=== PATIENT | male | born 1975 | race Hispanic/Latino ===

== ENCOUNTER 2018-11-22 13:42 | Emergency (ER) | payer OTHER ==
[2018-11-22 13:50] VITALS: RESP 18
--- NOTE | 2018-11-22 15:08 | C.PDOC ---
History Of Present Illness 43 year old male, whose past medical history includes hypertension and diabetes (compliant with medications), presents to the ED for evaluation of left thumb pain which began yesterday. Patient states he was trying to close a window last night, when he accidentally jammed this left thumb against the window sill. Patient has been experiencing left thumb and snuff box pain since. He is up-to-date with vaccinations and denies left elbow pain, lacerations or extremity numbness/weakness at this time. Chief Complaint (Nursing): Finger,Hand,&Wrist History Per: Patient History/Exam Limitations: no limitations Onset/Duration Of Symptoms: Hrs Current Symptoms Are (Timing): Still Present Quality: "Pain" Additional History Per: Patient Past Medical History Reviewed: Historical Data, Nursing Documentation, Vital Signs Vital Signs: Last Vital Signs Temp 98.3 F 11/22/18 13:47 Pulse 94 H 11/22/18 13:47 Resp 18 11/22/18 13:47 BP 128/92 H 11/22/18 13:47 Pulse Ox 95 11/22/18 13:47 - Medical History PMH: Diabetes, HTN Surgical History: No Surg Hx - [facility] Procedures TETANUS TOXOID ADMINIST (08/19/13) Family History: States: Unknown Family Hx - Social History Hx Tobacco Use: Yes Hx Alcohol Use: No Hx Substance Use: No - Immunization History Hx Tetanus Toxoid Vaccination: Yes Hx Influenza Vaccination: No Hx Pneumococcal Vaccination: No Review Of Systems Constitutional: Negative for: Fever, Chills Eyes: Negative for: Pain ENT: Negative for: Ear Pain, Ear Discharge, Mouth Pain, Mouth Swelling Cardiovascular: Negative for: Chest Pain, Palpitations Respiratory: Negative for: Cough, Shortness of Breath Gastrointestinal: Negative for: Nausea, Abdominal Pain Genitourinary: Negative for: Dysuria, Frequency Musculoskeletal: Positive for: Other (left thumb and L snuff box pain, no elbow pain ). Negative for: Neck Pain, Shoulder Pain, Arm Pain, Back Pain, Leg Pain, Foot Pain Neurological: Negative for: Weakness, Numbness Physical Exam - Physical Exam Appears: Non-toxic, No Acute Distress Skin: Normal Color, Warm, Dry Head: Atraumatic, Normacephalic Eye(s): bilateral: Normal Inspection Lips: Normal Appearing Gingiva: Normal Appearing Throat: Normal, No Erythema, No Exudate Neck: Normal, Normal ROM, No Midline Cervical Tenderness, Supple Chest: Symmetrical, No Deformity, No Tenderness Cardiovascular: Rhythm Regular Respiratory: Normal Breath Sounds Gastrointestinal/Abdominal: Normal Exam, Soft, No Tenderness Extremity: Normal ROM, Tenderness (left snuff box only), Capillary Refill (less than 2 seconds ), No Deformity, No Swelling Extremity: Right: Atraumatic Pulses: Left Radial: Normal, Right Radial: Normal Neurological/Psych: Oriented x3, Normal Speech, Normal Cognition, Normal Sensation ED Course And Treatment O2 Sat by Pulse Oximetry: 95 (on RA ) Pulse Ox Interpretation: Normal - Other Rad hand XR X-Ray: Viewed By Me, Read By Radiologist Interpretation: PROCEDURE: Left Hand Radiographs. HISTORY: L snuffbox pain after slamming against window. COMPARISON: None available. FINDINGS: BONES: No acute displaced fracture. JOINTS: No dislocation. SOFT TISSUES: Unremarkable. No evidence of radiopaque foreign body. OTHER FINDINGS: None. IMPRESSION: No acute displaced fracture, dislocation, or significant joint effusion identified. If symptoms persist, or if there is continued clinical concern, x-ray follow-up in 7-10 days should be considered. Medical Decision Making Medical Decision Makin43 year old male p/w L snuffbox tenderness pain w/ full ROM and normal strength on exam to L hand. Likely msk constusion but will seek xr. Progress: Left hand XR ordered and reviewed. XR unremarkable L spica splint placed w/ good n/v status after placement pt instructed to f/u w/ ortho / PMD for possible repeat XRays and given return instructions pt notes he has pain meds: tylenol and mortin at home asked for one dose of motrin prior to leaving. pt agreeable to plan. Disposition - Disposition Referrals: David Leach MD [Staff Provider] - [facility] [Outside] [facility] [Outside] [facility] [Outside] Disposition: HOME/ ROUTINE Disposition Time: 16:26 Condition: GOOD Additional Instructions: YOU MIGHT NEED REPEAT XRAYS, fOLLOW UP in 7-10 DAYS WITH EITHER CLINIC OR PRIMARY CARE DOCTOR OR BONE DOCTOR FOR REPEAT XRAYS BECCA RUFF, thank you for letting us take care of you today. Your provider was Larry Prasad and you were treated for FINGER PAIN. The emergency medical care you received today was directed at your acute symptoms. If you were prescribed any medication, please fill it and take as directed. It may take several days for your symptoms to resolve. Return to the Emergency Department if your sym ptoms worsen, do not improve, or if you have any other problems. Please contact your doctor or call one of the physicians/clinics you have been referred to that are listed on the Patient Visit Information form that is included in your discharge packet. Bring any paperwork you were given at discharge with you along with any medications you are taking to your follow up visit. Our treatment cannot replace ongoing medical care by a primary care provider outside of the emergency department. Thank you for allowing the [facility] team to be part of your care today. If you had an X-Ray or CT scan: A Radiologist will review the ED reading if any change in treatment is needed we will contact you. If you had a blood, urine, or wound culture: It will take several days for the results, if any change in treatment is needed we will contact you. If you had an STI test: It will take 48 hours for the results. Please call after 1 week if you have not heard back. Instructions: Hand Pain (DC) Forms: [employer] (Colombian) - Clinical Impression Clinical Impression: Left hand pain - Scribe Statement The provider has reviewed the documentation as recorded by the Scribe (Magnolia Wan) Provider Attestation: All medical record entries made by the Scribe were at my direction and personally dictated by me. I have reviewed the chart and agree that the record accurately reflects my personal performance of the history, physical exam, medical decision making, and the department course for this patient. I have also personally directed, reviewed, and agree with the discharge instructions and disposition.
--- NOTE | 2018-11-22 16:17 | RAD ---
PROCEDURE: Left Hand Radiographs. HISTORY: L snuffbox pain after slamming against window COMPARISON: None available. FINDINGS: BONES: No acute displaced fracture. JOINTS: No dislocation. SOFT TISSUES: Unremarkable. No evidence of radiopaque foreign body. OTHER FINDINGS: None. IMPRESSION: No acute displaced fracture, dislocation, or significant joint effusion identified. If symptoms persist, or if there is continued clinical concern, x-ray follow-up in 7-10 days should be considered.
[2018-11-22 17:06] VITALS: BP 132/85; PULSE 66; TEMP 97.8
[2018-11-22 22:57] VITALS: O2SAT 95
== END 2018-11-22 16:50 | disposition home or self-care (01) ==
LOC: C.ER 13:42
DX: M79.642 Pain in left hand (principal)

== ENCOUNTER 2019-03-26 15:43 | Emergency (ER) | payer OTHER ==
[2019-03-26 15:57] VITALS: RESP 18
--- NOTE | 2019-03-26 16:19 | C.PDOC ---
History Of Present Illness 43 y/o male with dm and htn twisted left ankl 2 hrs ago in yard, was carrying something and missed seeing drainage ditch. no other injuries. nothing taken for pain at home. Time Seen by Provider: 03/26/19 15:59 Chief Complaint (Nursing): Lower Extremity Problem/Injury History Per: Patient History/Exam Limitations: no limitations Onset/Duration Of Symptoms: Hrs Current Symptoms Are (Timing): Still Present Additional History Per: Patient - Ankle/Foot Description Of Injury: Twisted Past Medical History Reviewed: Historical Data, Nursing Documentation, Vital Signs Vital Signs: Last Vital Signs Temp 98.5 F 03/26/19 15:55 Pulse 104 H 03/26/19 15:55 Resp 18 03/26/19 15:55 BP 116/72 03/26/19 15:55 Pulse Ox 97 03/26/19 15:55 Primary Care Provider: Krissy Angel - Medical History PMH: Diabetes, HTN Surgical History: No Surg Hx - [facility] Procedures TETANUS TOXOID ADMINIST (08/19/13) Family History: States: Unknown Family Hx - Social History Hx Tobacco Use: Yes Hx Alcohol Use: No Hx Substance Use: No - Immunization History Hx Tetanus Toxoid Vaccination: Yes Hx Influenza Vaccination: No Hx Pneumococcal Vaccination: No Review Of Systems Musculoskeletal: Positive for: Other (left ankle pain ) Skin: Negative for: Rash, Lesions, Jaundice, Bruising (head injury, LOC ) Physical Exam - Physical Exam Appears: Non-toxic, No Acute Distress Skin: Normal Color, Warm, Dry Head: Atraumatic, Normacephalic Extremity: Normal ROM (full range of motion of left knee ), No Tenderness (proximal fibula ), Capillary Refill <2 Sec (less than 2 seconds ), No Deformity, Swelling, Other (moderate swelling to left lateral malleolus with surrounding tenderness ) Pulses: Left Radial: Normal, Right Radial: Normal Neurological/Psych: Oriented x3, Normal Speech, Normal Cognition, Normal Motor, Normal Sensation ED Course And Treatment O2 Sat by Pulse Oximetry: 97 (on RA ) Pulse Ox Interpretation: Normal Medical Decision Making Medical Decision Making: Left ankle XR ordered and reviewed. Tylenol PO given. XR wet read shows no fracture. Cold pack applied. Posterior splint applied, patient trained on using crutches. Disposition Counseled Patient/Family Regarding: Studies Performed, Diagnosis, Need For Followup, Rx Given - Disposition Referrals: [facility] [Outside] Podiatry Clinic [Outside] Disposition: HOME/ ROUTINE Disposition Time: 17:08 Condition: GOOD Additional Instructions: Follow up in podiatry clinic at [place] on Wed or Wed ([phone]) or at [facility] next Wednesday 12-4. Recommend no weight bearing until seen by podiatry. Tylenol or Motrin for pain. Keep splint dry. Elevate foot when possible. and apply cold compresses over splint. Instructions: Ankle Sprain (DC) Forms: [employer] (Salvadorean), General Discharge Instructions - Clinical Impression Clinical Impression: Sprain of ankle, left - PA / [employer]AL [employer]PER[employer]OR / Resident Statement MD/DO has reviewed & agrees with the documentation as recorded. - Scribe Statement The provider has reviewed the documentation as recorded by the Scribe (Magnolia Wan) All medical record entries made by the Scribe were at my direction and personally dictated by me. I have reviewed the chart and agree that the record accurately reflects my personal performance of the history, physical exam, medical decision making, and the department course for this patient. I have also personally directed, reviewed, and agree with the discharge instructions and disposition.
[2019-03-26 17:40] VITALS: BP 110/75; PULSE 78; TEMP 98.2
--- NOTE | 2019-03-26 17:55 | RAD ---
Date of service: 03/26/2019 PROCEDURE: Left Ankle Radiographs. HISTORY: lateral malleolus pain COMPARISON: None available. TECHNIQUE: 3 views obtained. FINDINGS: BONES: Normal. No fracture. JOINTS: Normal. No osteoarthritis. Ankle mortise maintained. Talar dome intact SOFT TISSUES: Soft tissue swelling noted at the lateral malleolus OTHER FINDINGS: None. IMPRESSION: No evidence of acute fracture or dislocation.
[2019-03-26 18:15] VITALS: O2SAT 97
== END 2019-03-26 17:40 | disposition home or self-care (01) ==
LOC: C.ER 15:43
DX: S93.402A Sprain of unspecified ligament of left ankle, initial encounter (principal); X50.1XXA Overexertion from prolonged static or awkward postures, initial encounter; Y92.096 Garden or yard of other non-institutional residence as the place of occurrence of the external cause; E11.9 Type 2 diabetes mellitus without complications; I10 Essential (primary) hypertension; Z72.0 Tobacco use